=== PATIENT | male | born 1975 | race Caucasian/White ===

== ENCOUNTER 2019-06-07 13:40 | Outpatient (RCR) | payer OTHER | END 2019-06-30 | LOC: M ST 13:40 | PROVIDERS: ATTEND Psychologist Clinical | DX: F80.81 Childhood onset fluency disorder (principal) ==

== ENCOUNTER 2019-07-26 07:30 | Outpatient (RCR) | payer OTHER | END 2019-07-30 | LOC: M ST 07:30 | PROVIDERS: ATTEND Psychologist Clinical | DX: F80.81 Childhood onset fluency disorder (principal) ==

== ENCOUNTER 2019-08-16 07:30 | Outpatient (RCR) | payer OTHER | END 2019-08-30 | LOC: M ST 07:30 | PROVIDERS: ATTEND Psychologist Clinical | DX: F80.81 Childhood onset fluency disorder (principal) ==